=== PATIENT | female | born 1990 | race Two or more races ===

== ENCOUNTER 2025-05-13 19:51 | Emergency (ER) | payer OTHER ==
[~2025-05-13] VITALS: Ht 154.9 cm; Wt 72.6 kg
[2025-05-13] MEDS ORDERED: KETOROLAC TROMETHAMINE 30 MG VIAL IV ONE (20:30)
[2025-05-13 20:35] LABS: BASO % 0.2 % (0.1-1.2); EOS # 0.18 (0.04-0.54); EOS % 1.7 % (0.7-7.0); LYMPH # 2.96 (1.18-3.74); LYMPH % 27.4 % (19.3-53.1); MEAN PLATELET VOLUME 11.50 fl (9.4-12.4); MONO # 0.56 (0.24-0.82); MONO % 5.2 % (4.7-12.5); NEUT # 7.06 (1.56-6.13); NEUT % 65.3 % (34.0-71.1); RED CELL DISTRIBUTION WIDTH 13.7 % (11.6-14.4)
[2025-05-13 21:08] LABS: URINE APPEARANCE Cloudy; URINE BACTERIA 227.9 uL (0.0-1933); URINE BILIRRUBIN Negative (NEGATIVE); URINE BLOOD Large; URINE COLOR Orange; URINE EPITHELIAL CELLS 10.7 uL (0.0-38.8); URINE GLUCOSE Negative (NEGATIVE); URINE KETONE Trace (NEGATIVE); URINE LEUKOCYTE Small; URINE NITRATE Negative; URINE PROTEIN 30 (NEGATIVE); URINE UROBILINOGEN 1.0 E.U./dl; URINE WBC 41.5 uL (0.0-23.2)
[2025-05-13 21:29] LABS: TYPE CELLS SQUAMOUS; URINE CAST 0.14 uL (0.0-1.40); URINE CRYSTALS FEW /HPF; URINE MUCUS SCANT; URINE RBC > 10558.9 uL (0.0-20.8)
[2025-05-13 21:59] LABS: BUN CREA RATIO 28.0 (7.0-25.0); CREATININE SERUM 0.79 mg/dL (0.55-1.02); GFR 83.81; GLUCOSE FASTING 97.0 mg/dL (65-100); OSMOLALITY SERUM 284.0 MOSM/KG (275-295)
[2025-05-13] MEDS ORDERED: TAMSULOSIN HCL 0.4 MG CAP PO ONE (23:45)
== END 2025-05-14 00:04 | disposition home or self-care (01) ==
LOC: ER 19:51
PROVIDERS: Emergency Medicine
DX: R10.9 Unspecified abdominal pain (principal); Z91.013 Allergy to seafood
CPT/HCPCS: 36415; 74176; 96365; 99284; J1885